=== PATIENT | male | born 2005 | race Caucasian/White ===

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

== ENCOUNTER 2025-02-06 21:26 | Emergency (ER) | payer MEDICAID, SELFPAY ==
[2025-02-06 21:29] VITALS: BMI 29.9
[2025-02-06 21:40] VITALS: BP 126/87; PULSE 108; RESP 18; TEMP 37.1; O2SAT 98
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
[2025-02-06] MEDS: IBUPROFEN TAB 400 MG TABLET 800 MG PO (22:12)
== END 2025-02-06 23:52 | disposition home or self-care (01) ==
PROVIDERS: Emergency Provider Emergency Medicine
DX: M25.512 Pain in left shoulder (principal); M54.2 Cervicalgia; M54.50 Low back pain, unspecified; M41.86 Other forms of scoliosis, lumbar region
CPT/HCPCS: 72040; 72100; 73030; 99283; A9270